=== PATIENT | female | born 1985 | race Caucasian/White ===

== ENCOUNTER 2018-12-02 12:59 | Emergency (ER) ==
[2018-12-02 13:08] VITALS: BP 146/85; TEMP 98; BMI 29.0
--- NOTE | 2018-12-02 13:54 | ED.PDOC ---
General ED Provider: Dr. KIMBERLEY NAVA Chief Complaint: Urinary Problem Stated Complaint: Burning with urination for past week. Time Seen by Physician: 13:30 Mode of Arrival: Walk-In Information Source: Patient Exam Limitations: No limitations Nursing and Triage Documentation Reviewed and Agree: Yes Does patient meet sepsis criteria?: No System Inflammatory Response Syndrome: Not Applicable Sepsis Protocol: For patient's 13 years and over: Temp is 96.8 and below OR 101 and greater Pulse >90 BPM Resp >20/minute Acutely Altered Mental Status Are patient's symptoms suggestive of a new infection, such as: -Pneumonia -Skin, Soft Tissue -Endocarditis -UTI -Bone, Joint Infection -Implantable Device -Acute Abdominal Infection -Wound Infection -Meningitis -Blood Stream Catheter Infection -Unknown Complaint Exam - UTI Female Complaint/Exam Patient Complains of: Reports: Painful urination Symptoms Are: Still present Timing: Intermittent Initial Severity: Moderate Current Severity: Mild Location of Pain: Reports: Suprapubic Associated Signs and Symptoms: Denies: Fever, Chills, Flank pain, Dyspareunia, Vaginal discharge Differential Diagnoses: Cystitis Review of Systems - Review Of Systems Constitutional: Reports: No symptoms Eyes: Reports: No symptoms Ears, Nose, Mouth, Throat: Reports: No symptoms Respiratory: Reports: No symptoms Cardiac: Reports: No symptoms GI: Reports: No symptoms : Reports: No symptoms Musculoskeletal: Reports: No symptoms Skin: Reports: No symptoms Neurological: Reports: No symptoms Endocrine: Reports: No symptoms Hematologic/Lymphatic: Reports: No symptoms All Other Systems: Reviewed and Negative Past Medical History - Past Medical History Previously Healthy: Yes Endocrine: Reports: None Cardiovascular: Reports: None Respiratory: Reports: None Hematological: Reports: None Gastrointestinal: Reports: None Genitourinary: Reports: None Neuro/Psych: Reports: None Musculoskeletal: Reports: None Cancer: Reports: None Last Menstrual Period: 2 weeks ago - Surgical History General Surgical History: Reports: None - Family History Family History: Reports: None - Social History Smoking Status: Current every day smoker Hx Substance Use: Yes (marijuana) Alcohol Screening: None - Immunizations Tetanus Shot up to Date: Yes Physical Exam - Physical Exam Appearance: Well-appearing, No pain distress, Well-nourished Eyes: BRIDGER, EOMI, Conjunctiva clear ENT: Ears normal, Nose normal, Oropharynx normal Respiratory: Airway patent, Breath sounds clear, Breath sounds equal, Respirations nonlabored Cardiovascular: RRR, Pulses normal, No rub, No murmur GI/: Soft, No masses, Bowel sounds normal, No Organomegaly, Tender ( suprapubic region ) Musculoskeletal: Normal strength, ROM intact, No edema, No calf tenderness Skin: Warm, Dry, Normal color Neurological: Sensation intact, Motor intact, Reflexes intact, Cranial nerves intact, Alert, Oriented Psychiatric: Affect appropriate, Mood appropriate Critical Care Note - Critical Care Note Total Time (mins): 0 Course - Course Orders, Labs, Meds: Lab Review 12/02/18 13:50 Urine Color Yellow Urine Clarity Turbid Urine pH 7.0 Ur Specific [place] 1.020 Urine Protein Negative Urine Glucose (UA) Negative Urine Ketones Negative Urine Blood Negative Urine Nitrite Negative Urine Bilirubin Negative Urine Urobilinogen 0.2 Ur Leukocyte Esterase 1+ Urine Microscopic RBC 0-2 Urine Microscopic WBC Tntc Ur Squamous Epith Cells 5-10 Urine Bacteria 1+ Urine Mucus 3+ Orders Category Date Time Status URINALYSIS C & S IF INDICATED Stat LAB 12/02/18 13:50 Completed URINE CULTURE Stat LAB 12/02/18 13:50 Completed Vital Signs: Temp Pulse Resp BP Pulse Ox 12/02/18 13:01 98.0 F 124 H 18 146/85 H 98 Departure - Departure Time of Disposition: 14:30 Disposition: HOME SELF-CARE Discharge Problem: UTI (urinary tract infection) Instructions: Urinary Tract Infection in Women (ED) Condition: Good Pt referred to PMD for follow-up: Yes ( specialist or pcp in 10 days) IPMP verified?: No Additional Instructions: Take antibiotics as directed Force oral fluids/stay well hydrated See PCP in 1-2 weeks Prescriptions: Nitrofurantoin Macrocrystal [Macrodantin] 100 mg PO BID #14 capsule Allergies/Adverse Reactions: Allergies No Known Allergies Allergy (Unverified 12/02/18 13:13) Home Medications: Ambulatory Orders Nitrofurantoin Macrocrystal [Macrodantin] 100 mg PO BID #14 capsule 12/02/18 Quetiapine Fumarate [Seroquel] 50 mg PO Q6H 12/02/18 Disposition Discussed With: Patient
== END 2018-12-02 14:47 | disposition home or self-care (01) ==
LOC: ED 12:59
DX: N39.0 Urinary tract infection, site not specified (principal); F17.210 Nicotine dependence, cigarettes, uncomplicated
CPT/HCPCS: 81001; 87086; 87186; 99282